=== PATIENT | male | born 1940 | race Caucasian/White ===

== ENCOUNTER 2018-05-29 13:24 | Outpatient (CLI) | payer OTHER | END 2018-05-29 13:30 | disposition home or self-care (01) | LOC: RAD 13:24 | DX: R10.84 Generalized abdominal pain (principal) ==

== ENCOUNTER 2018-05-30 09:36 | Outpatient (CLI) | payer OTHER | END 2018-05-30 09:39 | disposition home or self-care (01) | LOC: SONOGRAMA 09:36 → MAMO-SONO 09:45 | DX: R10.84 Generalized abdominal pain (principal) ==

== ENCOUNTER 2020-09-26 09:18 | Outpatient (CLI) | payer OTHER | END 2020-09-26 09:27 | disposition home or self-care (01) | LOC: TOM 09:18 | PROVIDERS: ATTEND Internal Medicine Cardiovascular Disease | DX: I63.50 Cerebral infarction due to unspecified occlusion or stenosis of unspecified cerebral artery (principal) ==

== ENCOUNTER 2023-07-29 08:08 | Outpatient (CLI) | payer OTHER ==
[~2023-07-29 08:08] MED LIST: SKELAXIN800 MG PO
[2023-07-29 09:02] LABS: CALCIUM 9.9 mg/dL (8.5-10.1); CREATININE SERUM 1.92 mg/dL (0.70-1.30); GFR 33.45; POTASSIUM 4.78 mEq/L (3.5-5.1)
== END 2023-07-29 08:09 | disposition home or self-care (01) ==
LOC: LAB 08:08
PROVIDERS: ATTEND Internal Medicine Cardiovascular Disease
DX: I10 Essential (primary) hypertension (principal); E11.9 Type 2 diabetes mellitus without complications